=== PATIENT | male | born 1995 | race Caucasian/White ===

== ENCOUNTER 2020-07-26 22:54 | Emergency (ER) | payer OTHER, SELFPAY ==
[2020-07-27 01:29] VITALS: BP 128/74; PULSE 88; RESP 18; TEMP 35.7; BMI 36.5
== END 2020-07-27 02:18 | disposition left against medical advice (07) ==
PROVIDERS: Emergency Provider Emergency Medicine
DX: R10.9 Unspecified abdominal pain (principal); R11.10 Vomiting, unspecified
CPT/HCPCS: 99281; 99282